=== PATIENT | male | born 1965 | race Caucasian/White ===

== ENCOUNTER 2020-10-19 12:36 | Outpatient (REF) | payer MEDICAID, SELFPAY | END 2020-10-19 12:37 | disposition home or self-care (01) | LOC: HO.LAB 12:36 | PROVIDERS: Visit Provider Internal Medicine | DX: Z20.822 Contact with and (suspected) exposure to COVID-19 (principal) | CPT/HCPCS: 36415; C9803; U0003; U0005 ==

== ENCOUNTER 2020-10-26 10:11 | Outpatient (REF) | payer MEDICAID, SELFPAY | END 2020-10-26 10:12 | disposition home or self-care (01) | LOC: HO.LAB 10:11 | PROVIDERS: Visit Provider Internal Medicine | DX: Z20.822 Contact with and (suspected) exposure to COVID-19 (principal) | CPT/HCPCS: 36415; C9803; U0003; U0005 ==

== ENCOUNTER 2020-11-18 10:43 | Emergency (ER) | payer MEDICAID, SELFPAY ==
--- NOTE | ~2020-11-18 | US_ITS ---
EXAMINATION: US VENOUS ULTRASOUND WITH DOPPLER LOWER EXTREMITY, RIGHT CLINICAL INFORMATION: Right knee pain COMPARISON: None TECHNIQUE: Ultrasound of the deep veins is performed from the hip to the calf with compression sonography and color and pulse Doppler assessment. Spectral analysis with color-flow imaging is performed. FINDINGS: There is normal venous compression and respiratory variation and augmented flow. The visualized common femoral vein, superficial femoral vein, profunda femoral vein, popliteal vein, and the trifurcation region shows no evidence of deep venous thrombosis. There is no significant popliteal fossa cyst. If the patient's symptoms persist, followup ultrasound in 5 days 7 days might be of value to exclude proximal propagation from a non-visualized calf vein. In the soft tissues of the anterior knee, there is a fluid collection that measures approximately 5.9 x 1.3 x 9.9 cm (craniocaudal by AP by TRV). Mild thickening of the overlying soft tissues. US/US venous duplex LE RT IMPRESSION: No DVT demonstrated in the right lower extremity. Fluid collection in the anterior soft tissues measuring approximately 5.9 x 1.3 x 9.9 cm, findings may represent a posttraumatic collection or other seroma. Recommend clinical correlation.
--- NOTE | ~2020-11-18 | XR_ITS ---
EXAMINATION: XR KNEE, RIGHT CLINICAL INFORMATION: Atraumatic knee pain. COMPARISON: None TECHNIQUE: Four views of the right knee. FINDINGS: There is moderate superior joint effusion. There is no acute fracture or dislocation. There is anterior suprapatellar calcified. The medial and lateral compartment joint space is maintained normal. No visible acute fracture, dislocation seen. XR/XR knee RT 4V IMPRESSION: Moderate joint effusion. No visible acute fracture or dislocation. There is anterior superior patellar enthesophyte.
[2020-11-18 11:12] VITALS: BP 140/77; PULSE 97; RESP 18; TEMP 36.8; O2SAT 98; BMI 31.8
--- NOTE | 2020-11-18 12:15 | PC.NURSE ---
ULTRASOUND AT [facility]
[2020-11-18] MEDS: oxyCODONE HCl Immed Release 5 MG TABLET PO (12:21)
[2020-11-18] MEDS: Ibuprofen 800 MG TABLET PO (12:22)
--- NOTE | 2020-11-18 12:33 | ED.EXTPRO ---
HPI - Extremity Problem General Chief complaint: Extremity Problem Stated complaint: knee pain Time Seen by Provider: 11/18/20 11:19 Source: patient Mode of arrival: ambulatory Limitations: language barrier (Faroese-speaking) History of Present Illness HPI Narrative: 55-year-old male with a past medical history of hypertension, hyperlipidemia and diabetes who was positive for COVID in September 2020 presenting to the ED with complaints of atraumatic right knee pain for the past few weeks worse today reports that it has gradually been getting worse. Reports he has noticed that he also has swelling and now the pain is going into his right calf. Denies history of DVT or PEs or currently being on anticoagulation. Denies fevers, dizziness, nausea/vomiting, chest pain, shortness of breath, dyspnea on exertion, orthopnea, palpitation or any other symptoms complaints or concerns at this time. MD Complaint: extremity pain and extremity swelling Onset (ago): week(s) (A few weeks worse today) Pain Consistency: constant Location: right and knee Severity scale (1-10): >10 Quality: aching and constant Radiation: none Relieving factors: nothing Exacerbating factors: range of motion, weight bearing, walking and palpation Associated symptoms: denies other symptoms Related Data Previous Rx's Medication Instructions Recorded acetaminophen [Tylenol Extra 1,000 mg PO QID PRN #14 tab 11/18/20 Strength] ibuprofen 800 mg PO Q8H PRN #14 tab 11/18/20 oxycodone 5 mg PO BID PRN #10 tab 11/18/20 Allergies Allergy/AdvReac Type Severity Reaction Status Date / Time No Known Allergies Allergy Verified 11/18/20 11:20 Review of Systems Review of Systems: Constitutional : No changes in activity, No lethargy, No recent prior head injury, No agitation, No increased fussiness ENT/Mouth : No Ear Pain, No Nasal discharge/drainage Eyes: No Eye Pain, No Swelling, No Redness, No Foreign Body, No Vision Changes Cardiovascular : No Chest Pain, No SOB Respiratory : No Cough Gastrointestinal : No Nausea, No Vomiting, No abdominal Pain Genitourinary : No Dysuria, No Urinary Frequency, No Urinary Incontinence, No Urgency, No Flank Pain Musculoskeletal : + joint pain/swelling, No neck stiffness, No back pain/injury Skin : No lacerations Neuro : No unsteady gait, No Paresthesias, No Loss of Consciousness, No altered mental status, No Headache Yes all other systems are reviewed and are negative [facility] Past Medical History Attestation statement: The following information was validated with the patient. Medical History Diabetes Hyperlipemia Hypertension Social History Social History Advance Directives: No Advance Directives Information Provided: No Physical Exam Vital Signs: Vital Signs: Last Vital Signs Temp 98.2 F 11/18/20 11:12 Pulse 97 11/18/20 11:12 Resp 18 11/18/20 11:12 BP 140/77 H 11/18/20 11:12 Pulse Ox 98 11/18/20 11:12 Body Mass Index 31.8 vital signs have been reviewed as normal and appeared to be correct. Blood pressure hypertensive at 140/77. Heart rate normal. Respiration rate normal. Temperature normal. Oxygen saturation normal. Appearance: Alert. Oriented X3. No acute distress. Head: Normal external exam. Normocephalic. Atraumatic. Eyes: PERRLA. EOMI. Conjunctiva and sclera normal. Eyelids normal. ENT: Pharynx normal. Uvula midline. Moist mucous membranes. Neck: Normal inspection. Neck supple. FROM. No adenopathy. Thyroid Normal. No meningeal signs. No neck mass noted. CVS: Normal heart rate and rhythm. Heart sound normal. No murmurs noted. Pulses normal throughout. Respiratory: No respiratory distress. Painless inspiration. Breath sounds normal. No wheezes/rales/rhonchi noted. Chest nontender. No accessory muscle usage noted or decreased air movement noted. Back: No CVA tenderness. Full range of motion noted. Skin: Skin warm and dry. Normal skin color. Normal skin turgor. No rashes/lesions/lacerations noted. Extremities: Patient with tenderness to palpation to right knee at the medial aspect with mild soft tissue swelling questioning joint effusion with full range of motion although pain with range of motion. No erythema noted. Not consistent with septic joint. No laxity noted. Ligaments and tendons appear to be intact. No rashes/lesion/induration/fluctuance or signs of infection noted. Patient does have right-sided calf tenderness. No left calf tenderness noted. No lower extremity edema. Otherwise all other Extremities exhibit normal range of motion and nontender. Neuro: Oriented X 3. No motor deficit. No sensory deficit. Reflexes normal. Course Course Course Narrative: 12:20pm - 55-year-old male with a past medical history of hypertension, hyperlipidemia and diabetes who was positive for COVID in September 2020 presenting to the ED with complaints of atraumatic right knee pain/swelling radiating to his right calf for the past few weeks worse today. - on exam patient is alert and oriented x3. Not in any acute distress. Mildly hypertensive at 140/77 otherwise all other vitals are within normal limits. Lungs clear to auscultation, CV RRR, abdomen is soft and nontender. Right knee noted to have mild soft tissue swelling questioning effusion although patient has full range of motion no laxity not consistent with septic joint. - concern for fracture vs DVT vs joint effusion - Plan: Xray of Right knee and US of RLE. Provide 800 mg of Motrin and 5 mg of oxycodone and re-evaluate. Reevaluation(s) Reevaluation #1: - x-ray obtained and revealed moderate joint effusion no other acute processes noted. Venous duplex ultrasound negative for any DVTs although revealed a fluid collection in the anterior soft tissue measuring approximately 5.9 x 1.3 x 9.9 cm - therefore due to patient have moderate to severe pain I performed a joint aspiration and removed 35 mL of serosanguineous fluid. Patient tolerated procedure well. No complications. Dakota bandage placed after procedure. Patient reports moderate improvement in his pain. Will DC home with Dakota wrap and symptomatic treatment along with instructions to follow-up with orthopedic. Patient understands agrees with this plan. Time: 13:15 Procedures Joint Aspiration/Injection Joint Asp./Inject. 1: Time Out Performed: Yes Side of body: right Joint Aspirated: knee Ultrasound Guidance: No Skin Prep: Povidone-Iodine1% Local Anesthetic: lidocaine 2% Amount of anesthesia used (mL): 10 Needle Size Used: 18G Fluid Obtained: clear (Serosanguineous) Total fluid obtained (mL): 35 Medication Injected, if any: Lidocaine Patient Tolerated Procedure: well Complications: none MDM - Extremity (Nontraumatic) Imaging Data Right knee x-ray: Attestation: I personally reviewed and interpreted this imaging study as follows: Radiologist's impression: FINDINGS: There is normal venous compression and respiratory variation and augmented flow. The visualized common femoral vein, superficial femoral vein, profunda femoral vein, popliteal vein, and the trifurcation region shows no evidence of deep venous thrombosis. There is no significant popliteal fossa cyst. If the patient's symptoms persist, followup ultrasound in 5 days 7 days might be of value to exclude proximal propagation from a non-visualized calf vein. In the soft tissues of the anterior knee, there is a fluid collection that measures approximately 5.9 x 1.3 x 9.9 cm (craniocaudal by AP by TRV). Mild thickening of the overlying soft tissues. US/US venous duplex LE RT IMPRESSION: No DVT demonstrated in the right lower extremity. Fluid collection in the anterior soft tissues measuring approximately 5.9 x 1.3 x 9.9 cm, findings may represent a posttraumatic collection or other seroma. Recommend clinical correlation. Right venous duplex ultrasound: Attestation: I personally reviewed and interpreted this imaging study as follows: Radiologist's impression: FINDINGS: There is normal venous compression and respiratory variation and augmented flow. The visualized common femoral vein, superficial femoral vein, profunda femoral vein, popliteal vein, and the trifurcation region shows no evidence of deep venous thrombosis. There is no significant popliteal fossa cyst. If the patient's symptoms persist, followup ultrasound in 5 days 7 days might be of value to exclude proximal propagation from a non-visualized calf vein. In the soft tissues of the anterior knee, there is a fluid collection that measures approximately 5.9 x 1.3 x 9.9 cm (craniocaudal by AP by TRV). Mild thickening of the overlying soft tissues. US/US venous duplex LE RT IMPRESSION: No DVT demonstrated in the right lower extremity. Fluid collection in the anterior soft tissues measuring approximately 5.9 x 1.3 x 9.9 cm, findings may represent a posttraumatic collection or other seroma. Recommend clinical correlation. Discharge Plan Discharge Clinical Impression: Effusion of right knee joint Patient Disposition: Home, Self-Care Instructions: Swollen Knee Joint (ED) Prescriptions: New ibuprofen 800 mg tablet 800 mg PO Q8H PRN (Reason: pain) Qty: 14 RF: 0 acetaminophen [Tylenol Extra Strength] 500 mg tablet 1,000 mg PO QID PRN (Reason: fever or pain) Qty: 14 RF: 0 oxycodone 5 mg tablet 5 mg PO BID PRN (Reason: pain) Qty: 10 RF: 0 Referrals: Marita Patel MD [Physician] - 2 days (Call Friday to make a follow-up appointment within the next 1-2 weeks) Print Language: Faroese
[2020-11-18] MEDS: Lidocaine HCl 2 % MPF 5 ML VIAL SUBCUT ×2 (14:26→14:27)
--- NOTE | 2020-11-18 14:27 | PC.NURSE ---
25CCS SEROSANGUINEOUS FLUID DRAINED FROM R KNEE BY PROVIDER. PT REPORTS SOME PAIN RELIEF WITH BOTH PAIN MED AND DRAINAGE.
[2020-11-18 14:29] VITALS: BP 103/68; PULSE 93; RESP 16; O2SAT 97
[2020-11-18 15:05] LABS: RBC Synovial Fluid 0.026 X10*6/uL
[2020-11-18 15:25] LABS: BF Shift QC OK YES; Lymphocytes Synovial Fluid 1 %; Monocytes Synovial Fluid 3 %; Neutrophils Synovial Fluid 96 %
[2020-11-18 15:26] LABS: MN% 8.8 %; Man Diluent Bkgrd OK YES; PMN% 91.2 %
[2020-11-19 06:58] LABS: Glucose Synovial Fluid 101; Total Protein Synovial Fluid 4.4
== END 2020-11-18 14:48 | disposition home or self-care (01) ==
PROVIDERS: Physician Assistant Medical; Emergency Provider Emergency Medicine
DX: M25.461 Effusion, right knee (principal); R60.0 Localized edema; I10 Essential (primary) hypertension; Z79.899 Other long term (current) drug therapy
CPT/HCPCS: 20610; 73564; 82945; 84157; 87071; 87073; 87205; 89051; 89060; 93971; 99284